=== PATIENT | male | born 1995 | race African-American/Black ===

== ENCOUNTER 2017-08-29 21:49 | Emergency (ER) | payer BC ==
[2017-08-29 21:55] VITALS: BP 134/61; PULSE 74; TEMP 97.8; BMI 25.0
[2017-08-29] MEDS ORDERED: IBUPROFEN 600 MG TABLET (FP) PO ONE (22:54)
[2017-08-29] MEDS ORDERED: IBUPROFEN 400 MG TABLET (FP) PO ONE (23:00)
--- NOTE | 2017-08-29 23:06 | PDOC ---
History of Present Illness - General Chief Complaint: Injury Stated Complaint: LT ARM PAIN Time Seen by Provider: 08/29/17 22:43 - History of Present Illness Initial Comments: 08/29/17 23:06 CHIEF COMPLAINT: L arm pain HISTORY OF PRESENT ILLNESS: 22 yo M with no significant PMH presents to ED with pain to left shoulder s/p "play fighting with brother and falling on my arm" yesterday. Patient reports he did put ice on the affected arm but denies taking any medication for pain. No recent travel or sick contacts. PAST MEDICAL HISTORY: Denies past medical history FAMILY HISTORY: Denies SOCIAL HISTORY: Denies tobacco, alcohol, illicit drug use. SURGICAL HISTORY: Denies ALLERGIES: No known drug allergies REVIEW OF SYSTEMS General/Constitutional: Denies fever or chills. Denies weakness, weight change. HEENT: Denies change in vision. Denies ear pain or discharge. Denies sore throat. Cardiovascular: Denies chest pain or shortness of breath. Respiratory: Denies cough, wheezing, or hemoptysis. Gastrointestinal: Denies nausea, vomiting, diarrhea or constipation. Denies rectal bleeding. Genitourinary: Denies dysuria, frequency, or change in urination. Musculoskeletal: Pain to L shoulder. Denies neck or back pain. Skin and breasts: Denies rash or easy bruising. PHYSICAL EXAM General Appearance: Well-appearing, appropriately dressed. No apparent distress , no intoxication. HEENT: EOMI, PERRLA, normal ENT inspection, normal voice, TMs normal, pharynx normal. No conjunctival pallor. No photophobia, scleral icterus. Neck: Supple. Trachea midline. No tenderness, rigidity, carotid bruit, stridor , lymphadenopathy, or thyromegaly. Respiratory/Chest: Lungs CTAB. No shortness of breath, chest tenderness, respiratory distress, accessory muscle use. No crackles, rales, rhonchi, stridor , wheezing, dullness Cardiovascular: RRR. S1, S2. No JVD, murmur, bradycardia, tachycardia. Vascular Pulses: Dorsalis-Pedis (R): 2+, Dorsalis-Pedis (L): 2+ Gastrointestinal/Abdominal: Normal bowel sounds. Abdomen soft, non-distended. No tenderness or rebound tenderness. No organomegaly, pulsatile mass, guarding , hernia, hepatomegaly, splenomegaly. Lymphatic: No adenopathy, tenderness. Musculoskeletal/Extremities: Mild TTP to lateral L shoulder, full ROM. FROM of all extremities, normal capillary refill. Pelvis Stable. No CVA tenderness. No tenderness to extremities, pedal edema, swelling, erythema or deformity. Integumentary: Appropriate color, dry, warm. 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 Fully oriented, alert. Appropriate mood/affect. Motor strength 5/5. No appreciable EOM palsy, facial droop or sensory deficit. 08/29/17 23:21 Past History - Past Medical History Allergies/Adverse Reactions: Allergies Allergy/AdvReac Type Severity Reaction Status Date / Time No Known Allergies Allergy Verified 08/29/17 21:53 Home Medications: Ambulatory Orders Diclofenac Sodium 50 mg PO BID #14 tablet. 08/30/17 COPD: No - Suicide/Smoking/Psychosocial Hx Smoking History: Never smoked *Physical Exam - Vital Signs Last Vital Signs Temp Pulse Resp BP Pulse Ox 97.8 F 74 18 134/61 100 08/29/17 21:53 08/29/17 21:53 08/29/17 21:53 08/29/17 21:53 08/29/17 21:53 ED Treatment Course - RADIOLOGY Radiology Studies Ordered: Category Date Time Status SHOULDER-LEFT [RAD] Stat Radiology 08/29/17 22:54 Ordered Medical Decision Making - Medical Decision Making 08/29/17 23:22 22 yo M with no significant PMH presents to ED with pain to left shoulder s/p "play fighting with brother and falling on my arm" yesterday. -motrin x-ray *DC/Admit/Observation/Transfer Diagnosis at time of Disposition: Shoulder injury - Discharge Dispostion Condition at time of disposition: Stable Admit: No - Prescriptions Prescriptions: Diclofenac Sodium 50 mg PO BID #14 tablet.dr - Referrals Referrals: Tony Mak MD [Staff Physician] - - Patient Instructions Printed Discharge Instructions: How to Use a Sling Additional Instructions: Take medications as prescribed. Please use affected sling to arm and follow up with orthopedics within the next 2-3 days if pain persists. If you develop any change in color or temperature to your arm or hand, any loss of sensation to your fingers or arm, or any new or worsening symptoms, please return to the ER. - Post Discharge Activity
== END 2017-08-30 01:19 | disposition home or self-care (01) ==
LOC: JERFT 21:49 → JER 21:49
DX: S49.82XA Other specified injuries of left shoulder and upper arm, initial encounter (principal); W18.39XA Other fall on same level, initial encounter; Y93.83 Activity, rough housing and horseplay; Y92.018 Other place in single-family (private) house as the place of occurrence of the external cause; Y99.8 Other external cause status
CPT/HCPCS: 73030-TC-LT-FY; 99281-25